=== PATIENT | female | born 1965 | race Caucasian/White ===

== ENCOUNTER 2016-09-10 10:19 | Outpatient (CLI) | payer MEDICAID | END 2016-09-10 10:20 | disposition home or self-care (01) | DX: Z12.31 Encounter for screening mammogram for malignant neoplasm of breast (principal) ==

== ENCOUNTER 2018-02-10 08:36 | Outpatient (CLI) | payer MEDICAID ==
--- NOTE | 2018-02-13 18:27 | Mammography Report ---
Procedure Date: 02/10/2018 Accession Number: [id number] / [id number] Procedure: MGS - Screening Mammo Dig Bilat CPT Code: FULL RESULT: EXAM: Screening Mammo Dig Bilat DATE: 02/10/2018 8:53 AM CLINICAL HISTORY: Routine screening TECHNIQUE: Bilateral CC, exaggerated CC, and MLO views were obtained. COMPARISON: 09/10/2016, 08/26/15, 10/19/2012, and 03/29/2011 FINDINGS: The breast tissue is heterogeneously dense. No significant interval change. No suspicious masses, clustered microcalcifications, or regions of architectural distortion are identified. IMPRESSION: Negative examination RECOMMENDATION: Routine annual screening unless otherwise clinically indicated. BIRADS CATEGORY 1: Negative STANDARD QUALIFYING STATEMENTS: 1. This examination was reviewed with the aid of Computer-Aided Detection (CAD). 2. A negative or benign imaging report should not delay biopsy if clinically suspicious findings are present. Consider surgical consultation if warrented. More than 5% of cancers are not identified by imaging. 3. Dense breasts may obscure an underlying neoplasm.
== END 2018-02-10 08:37 | disposition home or self-care (01) ==
LOC: DI.S 08:36
PROVIDERS: ATTEND Nurse Practitioner Family
DX: Z12.31 Encounter for screening mammogram for malignant neoplasm of breast (principal)
CPT/HCPCS: 77067

== ENCOUNTER 2018-09-29 08:07 | Outpatient (CLI) | payer MEDICAID ==
[2018-09-29 12:58] LABS: BASOPHILS # (AUTO) 0.1 10^3/uL (0.0-0.1); BASOPHILS % (AUTO) 0.7 %; EOSINOPHILS # (AUTO) 0.3 10^3/uL (0.0-0.7); EOSINOPHILS % (AUTO) 3.2 %; HGB - HEMOGLOBIN 14.7 g/dL (12.0-16.0); LYMPHOCYTES # (AUTO) 2.5 10^3/uL (1.5-3.5); LYMPHOCYTES % (AUTO) 30.6 %; MEAN CORPUSCULAR HEMOGLOBIN 30.5 pg (27.0-31.0); MEAN CORPUSCULAR HGB CONC 34.1 g/dL (32.0-36.0); MEAN CORPUSCULAR VOLUME 89.3 fL (81.0-99.0); MEAN PLATELET VOLUME 8.9 fL (7.9-10.8); MONOCYTES # (AUTO) 0.6 10^3/uL (0.0-1.0); NEUTROPHILS # (AUTO) 4.7 10^3/uL (1.5-6.6); NEUTROPHILS % (AUTO) 58.5 %; PLT - PLATELET COUNT 259 10^3/uL (130-450); RED BLOOD COUNT 4.83 10^6/uL (4.20-5.40); RED CELL DISTRIBUTION WIDTH 12.8 % (12.0-15.0); WHITE BLOOD COUNT 8.1 x10^3/uL (4.8-10.8)
[2018-09-29 13:14] LABS: ALBUMIN 4.3 g/dL (3.2-5.5); ALBUMIN/GLOBULIN RATIO 1.4 (1.0-2.2); ALKALINE PHOSPHATASE 73 IU/L (42-121); ALT ALANINE AMINOTRANSFERASE 23 IU/L (10-60); AST ASPARTATE AMINOTRANSFERASE 24 IU/L (10-42); BUN - BLOOD UREA NITROGEN 15 mg/dL (6-20); CALCIUM 9.3 mg/dL (8.5-10.3); CARBON DIOXIDE - CO2 27 mmol/L (21-32); CHLORIDE 100 mmol/L (101-111); CHOLESTEROL 213 mg/dL; CREATININE 0.7 mg/dL (0.4-1.0); GFR - MDRD 88 (>89); GLUCOSE 88 mg/dL (70-100); HDL CHOLESTEROL 70 mg/dL; LDL CHOLESTEROL,CALCULATED 128 mg/dL; LDL/HDL RATIO 1.8 (<4.4); SODIUM 135 mmol/L (135-145); TOTAL PROTEIN 7.3 g/dL (6.7-8.2); VLDL CHOLESTEROL 15 mg/dL
== END 2018-09-29 08:08 | disposition home or self-care (01) ==
LOC: LAB.F 08:07
PROVIDERS: ATTEND Nurse Practitioner Family
DX: I10 Essential (primary) hypertension (principal); Z13.6 Encounter for screening for cardiovascular disorders; R53.83 Other fatigue
CPT/HCPCS: 36415; 80053; 80061; 83721; 84443; 85025

== ENCOUNTER 2018-10-11 14:48 | Outpatient (CLI) | payer MEDICAID | END 2018-10-11 14:49 | disposition home or self-care (01) | LOC: LAB.F 14:48 | PROVIDERS: ATTEND Nurse Practitioner Family | DX: R53.83 Other fatigue (principal) | CPT/HCPCS: 36415; 84439; 84481 ==

== ENCOUNTER 2019-10-18 10:20 | Outpatient (CLI) | payer MEDICAID ==
--- NOTE | 2019-10-19 01:08 | XRAY Report ---
Reason: RIGHT FOREARM, WRIST HAND PAIN Procedure Date: 10/18/2019 Accession Number: [id number] / [id number] Procedure: XRS - Forearm RT CPT Code: Final Report FULL RESULT: EXAM: RIGHT HAND RADIOGRAPHY, 3 views RIGHT WRIST RADIOGRAPHY, 3 VIEWS RIGHT FOREARM RADIOGRAPHY, 2 VIEWS EXAM DATE: 10/18/2019 10:40 AM. CLINICAL HISTORY: RIGHT FOREARM, WRIST HAND PAIN. COMPARISON: None. FINDINGS: Right hand: The osseous structures are intact and well-aligned. The radiocapitellar alignment is normal. No joint effusion is seen. There is no focal soft tissue swelling or demineralization. Right wrist: The osseous structures are intact and well-aligned. No focal soft tissue swelling or demineralization is seen. Right forearm: The osseous structures are intact and well-aligned. The radiocapitellar alignment is normal. No joint effusion is seen. There is no focal soft tissue swelling or demineralization. IMPRESSION: Normal. RADIA
--- NOTE | 2019-10-19 01:08 | XRAY Report ---
Reason: RIGHT FOREARM, WRIST HAND PAIN Procedure Date: 10/18/2019 Accession Number: [id number] / [id number] Procedure: XRS - Wrist 3 View RT CPT Code: Final Report FULL RESULT: EXAM: RIGHT HAND RADIOGRAPHY, 3 views RIGHT WRIST RADIOGRAPHY, 3 VIEWS RIGHT FOREARM RADIOGRAPHY, 2 VIEWS EXAM DATE: 10/18/2019 10:40 AM. CLINICAL HISTORY: RIGHT FOREARM, WRIST HAND PAIN. COMPARISON: None. FINDINGS: Right hand: The osseous structures are intact and well-aligned. The radiocapitellar alignment is normal. No joint effusion is seen. There is no focal soft tissue swelling or demineralization. Right wrist: The osseous structures are intact and well-aligned. No focal soft tissue swelling or demineralization is seen. Right forearm: The osseous structures are intact and well-aligned. The radiocapitellar alignment is normal. No joint effusion is seen. There is no focal soft tissue swelling or demineralization. IMPRESSION: Normal. RADIA
--- NOTE | 2019-10-19 01:08 | XRAY Report ---
Reason: RIGHT FOREARM, WRIST HAND PAIN Procedure Date: 10/18/2019 Accession Number: [id number] / [id number] Procedure: XRS - Hand 3 View RT CPT Code: Final Report FULL RESULT: EXAM: RIGHT HAND RADIOGRAPHY, 3 views RIGHT WRIST RADIOGRAPHY, 3 VIEWS RIGHT FOREARM RADIOGRAPHY, 2 VIEWS EXAM DATE: 10/18/2019 10:40 AM. CLINICAL HISTORY: RIGHT FOREARM, WRIST HAND PAIN. COMPARISON: None. FINDINGS: Right hand: The osseous structures are intact and well-aligned. The radiocapitellar alignment is normal. No joint effusion is seen. There is no focal soft tissue swelling or demineralization. Right wrist: The osseous structures are intact and well-aligned. No focal soft tissue swelling or demineralization is seen. Right forearm: The osseous structures are intact and well-aligned. The radiocapitellar alignment is normal. No joint effusion is seen. There is no focal soft tissue swelling or demineralization. IMPRESSION: Normal. RADIA
== END 2019-10-18 10:21 | disposition home or self-care (01) ==
LOC: DI.S 10:20
PROVIDERS: ATTEND Family Medicine
DX: M79.631 Pain in right forearm (principal); M25.531 Pain in right wrist; M79.641 Pain in right hand

== ENCOUNTER 2020-08-13 08:13 | Outpatient (CLI) | payer MEDICAID ==
[2020-08-13 15:41] LABS: BASOPHILS # (AUTO) 0.1 10^3/uL (0.0-0.1); BASOPHILS % (AUTO) 0.8 %; EOSINOPHILS # (AUTO) 0.2 10^3/uL (0.0-0.7); EOSINOPHILS % (AUTO) 3.5 %; HGB - HEMOGLOBIN 14.5 g/dL (12.0-16.0); LYMPHOCYTES # (AUTO) 2.1 10^3/uL (1.5-3.5); LYMPHOCYTES % (AUTO) 33.7 %; MEAN CORPUSCULAR HEMOGLOBIN 29.7 pg (27.0-31.0); MEAN CORPUSCULAR HGB CONC 31.9 g/dL (32.0-36.0); MEAN CORPUSCULAR VOLUME 93.2 fL (81.0-99.0); MEAN PLATELET VOLUME 10.7 fL (7.9-10.8); MONOCYTES # (AUTO) 0.6 10^3/uL (0.0-1.0); MONOCYTES % (AUTO) 9.2 %; NEUTROPHILS # (AUTO) 3.3 10^3/uL (1.5-6.6); NEUTROPHILS % (AUTO) 52.6 %; PLT - PLATELET COUNT 303 10^3/uL (130-450); RED BLOOD COUNT 4.88 10^6/uL (4.20-5.40); RED CELL DISTRIBUTION WIDTH 12.2 % (12.0-15.0); WHITE BLOOD COUNT 6.3 x10^3/uL (4.8-10.8)
[2020-08-13 15:55] LABS: ALBUMIN 4.4 g/dL (3.2-5.5); ALBUMIN/GLOBULIN RATIO 1.4 (1.0-2.2); ALKALINE PHOSPHATASE 77 IU/L (42-121); ALT ALANINE AMINOTRANSFERASE 30 IU/L (10-60); AST ASPARTATE AMINOTRANSFERASE 27 IU/L (10-42); BUN - BLOOD UREA NITROGEN 13 mg/dL (6-20); CALCIUM 9.6 mg/dL (8.5-10.3); CARBON DIOXIDE - CO2 27 mmol/L (21-32); CHLORIDE 103 mmol/L (101-111); CHOL/HDL RATIO 3.7 (<4.4); CHOLESTEROL 250 mg/dL; CREATININE 0.8 mg/dL (0.4-1.0); GLUCOSE 103 mg/dL (70-100); HDL CHOLESTEROL 67 mg/dL; LDL CHOLESTEROL,CALCULATED 165 mg/dL; LDL/HDL RATIO 2.5 (<4.4); SODIUM 139 mmol/L (135-145); TOTAL PROTEIN 7.5 g/dL (6.7-8.2); VLDL CHOLESTEROL 18 mg/dL
[2020-08-14 12:59] LABS: HEPATITIS C ANTIBODY NON-REACTIVE (NON-REACTIVE)
== END 2020-08-13 08:14 | disposition home or self-care (01) ==
LOC: LAB.S 08:13
PROVIDERS: ATTEND Registered Nurse
DX: Z00.00 Encounter for general adult medical examination without abnormal findings (principal); R14.0 Abdominal distension (gaseous); F32.9 Major depressive disorder, single episode, unspecified; E03.9 Hypothyroidism, unspecified; R53.83 Other fatigue; I10 Essential (primary) hypertension; K21.9 Gastro-esophageal reflux disease without esophagitis
CPT/HCPCS: 36415; 80053; 80061; 83721; 84443; 85025; 86803

== ENCOUNTER 2021-10-06 15:43 | Outpatient (CLI) | payer MEDICAID ==
--- NOTE | 2021-10-08 07:01 | Mammography Report ---
BILATERAL DIGITAL SCREENING MAMMOGRAM 3D/2D WITH EXAGGERATED CC: 10/06/2021 CLINICAL: Routine screening. Comparison is made to exams dated: 02/10/2018 mammogram, 09/10/2016 mammogram, and 08/26/2015 mammogra m - [facility]. There are scattered fibroglandular elements in both breasts. No significant masses, calcifications, or other findings are seen in either breast. There has been no significant interval change. IMPRESSION: NEGATIVE There is no mammographic evidence of malignancy. A 1 year screening mammogram is recommended. This exam was interpreted at Station ID: [id number]. NOTE: For mammograms, a report in lay terms will be sent to the patient. Approximately 15% of breast malignancies will not be visualized mammographically. In the management of a palpable breast mass, a negative mammogram must not discourage biopsy of a clinically suspicious lesion. Electronically Signed By: Alfred Mccauley M.D. ar/penrad:10/07/2021 08:58:48 ACR BI-RADS Category 1: Negative 3341F PARENCHYMAL PATTERN: (A) - The breast(s) demonstrate(s) scattered fibroglandular densities. BI-RADS CATEGORY: (1) - 1 RECOMMENDATION: (ANNUAL) - Recommend routine annual screening mammography. [id number] 1 year screening LATERALITY: (B)
== END 2021-10-06 15:44 | disposition home or self-care (01) ==
LOC: DI.S 15:43
PROVIDERS: ATTEND Registered Nurse
DX: Z12.31 Encounter for screening mammogram for malignant neoplasm of breast (principal)

== ENCOUNTER 2021-10-09 10:38 | Outpatient (CLI) | payer MEDICAID ==
--- NOTE | 2021-10-09 11:24 | SLEEP CARE CONSULTATION ---
Information from patient questionnaire entered by Willow Nichole MA. I have reviewed and concur with the information entered by Willow Nichole MA. This document represents the service I personally performed and the decisions made by , Helena Drake ARNP. History of Present Illness Service Date and Time: 10/09/2021 1038 Reason for Visit: New patient (onset 07/2011, no priors) Chief Complaint: reports: Insomnia, Unrefreshed sleep, Snoring (light according to her partner), Excessive daytime sleepiness, Fatigue, Frequent awakenings at night Date of Onset: 15 or so years Usual bedtime: 10-11 PM Time it takes to fall asleep: 5-60 minutes Snores at night: Yes Observed to quit breathing while asleep: No Sleeps alone due to snoring: No Number of times waking at night: 1-2 Reasons for waking at night: reports: Bathroom, Other (unknown reason; woke up gasping with nightmares). denies: Choking, Snoring, Gasping for air Toss, Turn, or Twitch while sleeping: Yes Recalls having dreams: Yes Usually gets out of bed at: 6-7 AM Feels refreshed in the morning: No Morning headache: No (occasionally if has several days of not getting adequate sleep) Sleepy or fatigued during the day: Yes Ever fallen asleep while driving: No Takes day naps: Yes (rarely) Dreams during day naps: Yes Prior sleep studies: No Additional HPI information: I had the pleasure of seeing MORRO LOGAN today regarding the possibility of her having a sleep disorder. Her current complaints are insomnia, frequent night awakenings, fatigue, excessive daytime sleepiness and snoring. She will not usually able to go to sleep quickly. Thoughts, her feet feeling hot or restless leg feelings will keep her awake. She will wake up 1-2 times a night and then have difficulty going back to sleep. She states needing the bathroom wakes her up or just needing to change position. - Parasomnia Symptoms Ever been unable to move upon waking from sleep: No Walks in sleep: Yes (as child, not sure now) Talks in sleep: Yes Ever acted out dreams in sleep: Yes Ever felt weak in the knees when startled or emotional: Yes (has not fallen to ground) Bothered by creepy, crawly, restless sensations in legs: Yes (nighttime occasionally) Problems with memory or concentration: Yes (both) Subjective Initial [place] Sleepiness Scale score: 14 (2021) Past Medical History Past Medical History: reports: Hypertension, Claustrophobia, Arthritis, Hypothyroidism, Anxiety, Asthma (Reactive airway asthma/ with activity), Depression, GERD, Other (Raynauds; has episodes of erratic heart rate with shortness of breath, being evaluated) Social History The patient's occupation is a SE. Patient is Single and lives in [place]. Have you smoked in the past 12 months: No Alcohol use: Yes Alcohol amount and frequency: 1-2 drinks, 3-4 days a week Caffeine use: Yes Caffeine amount and frequency: 1 cup coffee in morning, daily Family History Family history of sleep disordered breathing: Yes (snoring) Family Hx Sleep Apnea: Mother: Snoring, Father: Snoring Allergies and Home Medications Drug allergies reviewed: Yes (permethrin, penicillins) Home medication list reviewed: Yes Allergy and home medication list: Allergies permethrin Allergy (Severe, Verified 11/10/15 12:54) Anaphylaxis Penicillins Allergy (Intermediate, Verified 11/10/15 12:54) Rash Bee venom- all types Allergy (Severe, Uncoded 11/10/15 12:54) Anaphylaxis Medications: Lisinopril 5 mg Levothyroxine 10 mcg Review of Systems Weight gain over past 5 years: 25 Cardiovascular: reports: high blood pressure, palpitations, irregular heart rate or pulse, leg or foot swelling Respiratory: reports: shortness of breath, wheeze Gastrointestinal: reports: heartburn, difficulty swallowing (slight), diarrhea, abdominal pain Urinary: reports: incontinence (slight) Psychiatric: reports: anxiety, depression, claustrophobia Ear/Nose/Throat: reports: sinus problems, wisdom teeth removed. denies: tonsillectomy Endocrine: reports: too hot or cold, excessive thirst, increased urination Musculoskeletal: reports: joint pain, neck pain, back pain, muscle pain or cramping Immunologic: reports: itching, allergies to food or environment (bee venom) Physical Exam Blood Pressure: 127/84 (right) Cuff size: wrist Heart Rate: 75 O2 Saturation: 99 Height: 5 ft 5.5 in Weight: 162 lb Body Mass Index: 26.5 BMI Classification: Overweight Neck circumference: 13.75 (inches) Mouth and throat: narrow oropharynx Soft palate: long Hard palate: normal Uvula: normal Uvula visualization: 50% Mallampati Class II Tongue: enlarged in size with teeth mariscal on lateral edges Tonsils: 1+ Neck: normal w/o lymphadenopathy or thyromegaly Heart: regular rate and rhythm Lungs: clear bilaterally Impression and Plan 1. Suspected Obstructive Sleep Apnea-Hypopnea Syndrome, as suggested by a history of irregular snoring, frequent awakening during the night, unrefreshed sleep, cognitive impairment, and excessive daytime sleepiness. Narrow oropharynx and obesity are common predisposing factors for obstructive sleep apnea-hypopnea syndrome. I recommend proceeding to polysomnography to confirm the diagnosis and to assess severity. If the patient has significant sleep disordered breathing, a manual CPAP titration study will also be performed to find the optimal treatment pressure. I informed the patient of what the sleep studies involve and after some discussion, obtained agreement to proceed. The pathophysiology of obstructive sleep apnea-hypopnea syndrome was discussed with the patient and health risks of cardiovascular and cerebrovascular disease if not treated. Risks of drowsy driving discussed in detail and patient advised to avoid long distance driving and to ice puller at the first sign of drowsiness. Patient agreed to plan. * Schedule polysomnography +- manual CPAP titration study and return in 1-2 weeks after the study to discuss result and initiate therapy. * Avoid long distance driving or driving when feeling sleepy. * Avoid alcohol, sedative and muscle relaxant around bedtime. * Attempt to lose weight. * Review instructions provided by trained office staff on how to prepare for the sleep study. * Return for follow-up after sleep study completed. Counseling Topics: Weight loss health impact Visit Type: In Office Time Spent with Patient (minutes): 30 Provider Statement: I spent 100% of the Face to Face Visit with the patient with greater than 50% spent counseling the patient and coordination of care.
[2021-10-09 11:25] VITALS: BP 127/84
== END 2021-10-09 10:39 | disposition home or self-care (01) ==
LOC: SC 10:38
PROVIDERS: ATTEND Nurse Practitioner Family
DX: G47.10 Hypersomnia, unspecified (principal); R53.83 Other fatigue; G47.8 Other sleep disorders; G47.00 Insomnia, unspecified; R06.83 Snoring; I49.9 Cardiac arrhythmia, unspecified; I10 Essential (primary) hypertension; F32.A Depression, unspecified; E66.3 Overweight; Z68.26 Body mass index [BMI] 26.0-26.9, adult
CPT/HCPCS: 99203; 99212

== ENCOUNTER 2022-01-06 09:57 | Outpatient (CLI) | payer MEDICAID ==
[2022-01-06 15:00] LABS: ALBUMIN/GLOBULIN RATIO 1.3 (1.0-2.2); ALKALINE PHOSPHATASE 85 IU/L (42-121); ALT ALANINE AMINOTRANSFERASE 19 IU/L (10-60); AST ASPARTATE AMINOTRANSFERASE 20 IU/L (10-42); BASOPHILS % (AUTO) 0.6 %; BILIRUBIN,TOTAL 0.7 mg/dL (0.2-1.0); BUN - BLOOD UREA NITROGEN 9 mg/dL (6-20); CALCIUM 9.5 mg/dL (8.5-10.3); CARBON DIOXIDE - CO2 27 mmol/L (21-32); CHLORIDE 100 mmol/L (101-111); CHOL/HDL RATIO 4.4 (<4.4); CHOLESTEROL 239 mg/dL; CREATININE 0.8 mg/dL (0.4-1.0); EOSINOPHILS # (AUTO) 0.1 10^3/uL (0.0-0.7); GFR - MDRD 74 (>89); GLUCOSE 92 mg/dL (70-100); HCT - HEMATOCRIT 45.6 % (37.0-47.0); HDL CHOLESTEROL 54 mg/dL; LDL CHOLESTEROL,CALCULATED 135 mg/dL; LDL/HDL RATIO 2.5 (<4.4); LYMPHOCYTES # (AUTO) 2.2 10^3/uL (1.5-3.5); LYMPHOCYTES % (AUTO) 30.7 %; MEAN CORPUSCULAR HEMOGLOBIN 29.8 pg (27.0-31.0); MEAN CORPUSCULAR HGB CONC 32.9 g/dL (32.0-36.0); MEAN CORPUSCULAR VOLUME 90.7 fL (81.0-99.0); MEAN PLATELET VOLUME 10.2 fL (7.9-10.8); MONOCYTES # (AUTO) 0.5 10^3/uL (0.0-1.0); MONOCYTES % (AUTO) 6.5 %; NEUTROPHILS # (AUTO) 4.3 10^3/uL (1.5-6.6); NEUTROPHILS % (AUTO) 59.9 %; PLT - PLATELET COUNT 307 10^3/uL (130-450); POTASSIUM 3.9 mmol/L (3.5-5.0); RED BLOOD COUNT 5.03 10^6/uL (4.20-5.40); RED CELL DISTRIBUTION WIDTH 12.7 % (12.0-15.0); SODIUM 137 mmol/L (135-145); TRIGLYCERIDES 251 mg/dL; VLDL CHOLESTEROL 50 mg/dL; WHITE BLOOD COUNT 7.1 x10^3/uL (4.8-10.8)
[2022-01-06 15:04] LABS: THYROID STIMULATING HORMONE 1.7 uIU/mL (0.34-5.60)
== END 2022-01-06 09:58 | disposition home or self-care (01) ==
LOC: LAB.S 09:57
PROVIDERS: ATTEND Registered Nurse
DX: E03.9 Hypothyroidism, unspecified (principal); Z13.220 Encounter for screening for lipoid disorders; Z13.29 Encounter for screening for other suspected endocrine disorder; Z13.0 Encounter for screening for diseases of the blood and blood-forming organs and certain disorders involving the immune mechanism
CPT/HCPCS: 36415; 80053; 80061; 83721; 84443; 85025

== ENCOUNTER 2022-06-25 07:38 | Day surgery (SDC) | payer MEDICAID ==
[2022-06-25] MEDS ORDERED: LACTATED RINGERS 1,000 ML IV ONE ×2 (07:41→09:03)
--- NOTE | 2022-06-25 08:16 | ANESTHESIA ---
Pre-Anesthesia VS, & Labs - Diagnosis history of colon polyps - Procedure colonoscopy Vital Signs: Temp Pulse Resp BP Pulse Ox O2 Flow Rate 36 C L 83 16 157/100 H 99 06/25/22 07:41 06/25/22 07:41 06/25/22 07:41 06/25/22 07:41 06/25/22 07:41 Height: 5 ft 5 in Weight (kg): 69.6 kg Body Mass Index: 25.5 BMI Classification: Overweight - NPO >8 hours - Is Patient ?: No Home Medications and Allergies Home Medications: Ambulatory Orders Levothyroxine [Synthroid] 50 mcg PO QDAC 06/24/22 lisinopriL [Lisinopril] 5 mg PO DAILY 06/03/14 Levothyroxine [Synthroid] 50 mcg PO QDAC 06/24/22 Allergies/Adverse Reactions: Allergies Allergy/AdvReac Type Severity Reaction Status Date / Time permethrin Allergy Severe Anaphylaxis Verified 06/25/22 08:05 Penicillins Allergy Intermediate Rash Verified 06/25/22 08:05 Bee venom- all types Allergy Severe Anaphylaxis Uncoded 11/10/15 12:54 Anes History & Medical History - Anesthetic History Anesthesia Complications: reports: No previous complications - Medical History Cardiovascular: reports: Hypertension Pulmonary: reports: None Gastrointestinal: reports: GERD, Hiatal hernia Urinary: reports: None Neuro: reports: None Musculoskeletal: reports: None, Osteoarthritis, Fibromyalgia Endocrine/Autoimmune: reports: HyPOthyroidism Blood Disorders: reports: None Skin: reports: None Smoking Status: Never smoker Psychosocial: reports: Depression, Anxiety, Alcohol (daily) 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
--- NOTE | 2022-06-25 08:28 | HISTORY & PHYSICAL EXAMINATION ---
Chief Complaint - Chief Complaint Chief Complaint: here for colon cancer screening History of Present Illness - History Obtained From Records Reviewed: yes History obtained from: pt Exam Limitations: none - History of Present Illness HPI Comment/Other: history colon polyps and ruptured appendix with carcinoid. here for surveillance History - Past Medical History Cardiovascular: reports: Hypertension Respiratory: reports: None Neuro: reports: None Endocrine/Autoimmune: reports: HyPOthyroidism GI: reports: GERD, Hiatal hernia : reports: None HEENT: reports: Other Psych: reports: None, Depression, Anxiety, Panic attacks Musculoskeletal: reports: None, Osteoarthritis, Fibromyalgia Derm: reports: None MRSA Hx?: No - Past Surgical History General: reports: Appendectomy, Colonoscopy, EGD /DECK HAND: reports: Hysterectomy Meds/Allgy - Home Medications Home Medications: Ambulatory Orders Medication Instructions Recorded Confirmed lisinopriL [Lisinopril] 5 mg PO DAILY 06/03/14 06/24/22 Levothyroxine [Synthroid] 50 mcg PO QDAC 06/24/22 06/24/22 - Allergies Allergies/Adverse Reactions: Allergies Allergy/AdvReac Type Severity Reaction Status Date / Time permethrin Allergy Severe Anaphylaxis Verified 06/25/22 08:05 Penicillins Allergy Intermediate Rash Verified 06/25/22 08:05 Bee venom- all types Allergy Severe Anaphylaxis Uncoded 11/10/15 12:54 Review of Systems - Other Findings Other Findings: 10 pt ros as above otherwise unremarkable Exam - Vital Signs Reviewed Vital Signs: Yes Vital Signs: Vital Signs x48h Temp Pulse Resp BP Pulse Ox 06/25/22 07:41 36 C L 83 16 157/100 H 99 - Physical Exam General Appearance: positive: No acute distress, Alert Eyes Bilateral: positive: PERRL, EOMI ENT: positive: No signs of dehydration Respiratory: positive: No respiratory distress, Breath sounds nml Cardiovascular: positive: Regular rate & rhythm Abdomen: positive: Non-tender, No distention Neurologic/Psychiatric: positive: Oriented x3 Conclusion/Plan - Problem List (1) Colon cancer screening Conclusion/Plan: plan colonoscopy parq held and consent obtained
[2022-06-25] MEDS ORDERED: MIDAZOLAM 2 MG/2 ML VIAL ONE (08:34)
[2022-06-25] MEDS ORDERED: PROPOFOL 500 MG/50 ML 500 MG/50 ML VIAL ONE (08:34)
--- NOTE | 2022-06-25 09:36 | ANESTHESIA POST OP EVALUATION ---
Anesthesia Post Eval - Post Anesthesia Eval Vitals: Last Vital Signs Temp 36.2 C L 06/25/22 09:30 Pulse 66 06/25/22 09:30 Resp 22 06/25/22 09:30 BP 127/81 H 06/25/22 09:30 Pulse Ox 99 06/25/22 09:30 O2 Flow Rate CV Function Including HR & BP: Stable Pain Control: Satisfactory Nausea & Vomiting: Negative Mental Status: Baseline Respiratory Status: Airway Patent Hydration Status: Satisfactory Anesthesia Complications: None
[2022-06-25 11:03] VITALS: BP 130/74
== END 2022-06-25 07:39 | disposition home or self-care (01) ==
LOC: SDS 07:38
PROVIDERS: ATTEND Surgery
PROC: 0DBP8ZX Excision of Rectum, Via Natural or Artificial Opening Endoscopic, Diagnostic (ICD-10-PCS; principal; 2022-06-25 08:35)
DX: K62.1 Rectal polyp (principal); I10 Essential (primary) hypertension
CPT/HCPCS: 45380; J7120

== ENCOUNTER 2022-09-25 18:18 | Outpatient (CLI) | payer MEDICAID | END 2022-09-25 18:19 | disposition short-term general hospital (02) | LOC: EMS 18:18 | DX: R07.89 Other chest pain (principal) | CPT/HCPCS: A0425; A0427; A0999 ==

== ENCOUNTER 2022-11-17 08:05 | Outpatient (CLI) | payer MEDICAID ==
--- NOTE | 2022-11-17 09:28 | Mammography Report ---
BILATERAL DIGITAL SCREENING MAMMOGRAM 3D/2D: 11/17/2022 CLINICAL: Routine screening. Comparison is made to exams dated: 10/06/2021 mammogram, 02/10/2018 mammogram, and 09/10/2016 mammogram - [facility]. There are scattered areas of fibroglandular density in both breasts (category b / 25%-50% glandular t issue). No significant masses, calcifications, or other findings are seen in either breast. There has been no significant interval change. IMPRESSION: NEGATIVE There is no mammographic evidence of malignancy. A 1 year screening mammogram is recommended. Based on the Tyrer Cuzick model (a risk assessment model) the patients lifetime risk is 8.5% and her 10 year risk is 2.9%. According to the ACR, ACS, and NCCN guidelines, an annual breast MRI exam shivam g with mammogram is recommended if the patients lifetime risk is 20% or greater. This exam was interpreted at Station ID: [id number]. NOTE: For mammograms, a report in lay terms will be sent to the patient. Approximately 15% of breast malignancies will not be visualized mammographically. In the management of a palpable breast mass, a negative mammogram must not discourage biopsy of a clinically suspicious lesion. Electronically Signed By: Mc campbell/maria d:11/17/2022 08:58:22 letter sent: No_Letter ACR BI-RADS Category 1: Negative 3341F PARENCHYMAL PATTERN: (A) - The breast(s) demonstrate(s) scattered fibroglandular densities. BI-RADS CATEGORY: (1) - 1 Mammogram [id number] 1 year screening LATERALITY: (B)
== END 2022-11-17 08:06 | disposition home or self-care (01) ==
LOC: DI.S 08:05
PROVIDERS: ATTEND Registered Nurse
DX: Z12.31 Encounter for screening mammogram for malignant neoplasm of breast (principal)